=== PATIENT | female | born 1950 | race Caucasian/White ===

== ENCOUNTER 2020-11-21 10:17 | Outpatient (CLI) | payer MEDICARE, MEDICAID, SELFPAY | END 2020-11-21 10:18 | disposition home or self-care (01) | DX: H90.3 Sensorineural hearing loss, bilateral (principal) | CPT/HCPCS: 92553; 92555; 92567 ==

== ENCOUNTER 2021-12-18 13:05 | Outpatient (CLI) | payer MEDICARE, MEDICAID, SELFPAY | END 2021-12-18 13:06 | disposition home or self-care (01) | PROVIDERS: PCP Family Medicine; Visit Provider Family Medicine | DX: H91.93 Unspecified hearing loss, bilateral (principal) | CPT/HCPCS: 92557; 92567 ==

== ENCOUNTER 2023-04-16 13:08 | Outpatient (CLI) | payer MEDICARE, MEDICAID, SELFPAY | END 2023-04-16 13:09 | disposition home or self-care (01) | PROVIDERS: PCP Family Medicine; Visit Provider Family Medicine | DX: H91.93 Unspecified hearing loss, bilateral (principal) | CPT/HCPCS: 99199 ==

== ENCOUNTER 2023-07-02 13:38 | Outpatient (CLI) | payer MEDICARE, MEDICAID, SELFPAY | END 2023-07-02 13:39 | disposition home or self-care (01) | LOC: ANHBWCAUD 13:39 | PROVIDERS: PCP Family Medicine | DX: H65.23 Chronic serous otitis media, bilateral (principal) | CPT/HCPCS: 99199 ==

== ENCOUNTER 2024-08-18 08:36 | Outpatient (CLI) | payer MEDICARE, MEDICAID, SELFPAY | END 2024-08-18 08:37 | disposition home or self-care (01) | LOC: ANHBWCAUD 08:36 | PROVIDERS: PCP Family Medicine; Visit Provider Family Medicine | DX: H91.93 Unspecified hearing loss, bilateral (principal) | CPT/HCPCS: 99199 ==

== ENCOUNTER 2024-11-02 10:41 | Outpatient (CLI) | payer MEDICARE, MEDICAID, SELFPAY | END 2024-11-02 10:42 | disposition home or self-care (01) | PROVIDERS: PCP Family Medicine | DX: H61.23 Impacted cerumen, bilateral (principal) | CPT/HCPCS: 92553; 92555; 92567 ==